=== PATIENT | female | born 1975 | race Two or more races ===

== ENCOUNTER 2024-11-04 08:00 | Day surgery (SDC) | payer OTHER ==
[2024-11-03 08:53] LABS: BASO % 0.6 % (0.1-1.2); EOS # 0.05 (0.04-0.54); EOS % 0.7 % (0.7-7.0); LYMPH # 3.03 (1.18-3.74); LYMPH % 45.0 % (19.3-53.1); MEAN PLATELET VOLUME 9.90 fl (9.4-12.4); MONO # 0.51 (0.24-0.82); MONO % 7.6 % (4.7-12.5); NEUT # 3.07 (1.56-6.13); NEUT % 45.5 % (34.0-71.1); RED CELL DISTRIBUTION WIDTH 12.3 % (11.6-14.4)
[2024-11-03 08:58] LABS: URINE APPEARANCE Clear; URINE BILIRRUBIN Negative (NEGATIVE); URINE BLOOD Negative; URINE COLOR Yellow; URINE GLUCOSE Negative (NEGATIVE); URINE KETONE Trace (NEGATIVE); URINE LEUKOCYTE Small; URINE NITRATE Negative; URINE PROTEIN Negative (NEGATIVE); URINE UROBILINOGEN 0.2 E.U./dl
[2024-11-03 08:59] LABS: URINE BACTERIA 592.7 uL (0.0-1933); URINE EPITHELIAL CELLS 18.2 uL (0.0-38.8); URINE RBC 7.4 uL (0.0-20.8); URINE WBC 18.2 uL (0.0-23.2)
[2024-11-03 09:10] LABS: COVID-19 AG NEGATIVE (NEGATIVE)
[2024-11-03 09:15] LABS: URINE CAST 0.14 uL (0.0-1.40)
[2024-11-03 09:17] LABS: INR 1.0
[2024-11-03 09:19] LABS: ALT/SGPT 16.0 U/L (12-78); AST/SGOT 10.0 U/L (15-37); BILIRUBIN TOTAL 0.6 mg/dL (0.3-1.2); BUN CREA RATIO 24.0 (7.0-25.0); CREATININE SERUM 0.66 mg/dL (0.55-1.02); GFR 94.8; GLOBULINA 3.3 G/DL (2.4-3.5); GLUCOSE FASTING 86.0 mg/dL (65-100); OSMOLALITY SERUM 284.0 MOSM/KG (275-295)
[2024-11-03 10:04] VITALS: BP 101/64
[~2024-11-04] VITALS: Ht 160 cm; Wt 61.7 kg
[2024-11-04] MEDS ORDERED: SUGAMMADEX SODIUM 200 MG/2 ML VIAL IV ONE (14:00)
[2024-11-04] MEDS ORDERED: POVIDONE-IODINE SCRUB 118 ML BOTT TOP ONE (14:00)
[2024-11-04] MEDS ORDERED: POVIDONE-IODINE 118 ML BOTT TOP ONE (14:00)
[2024-11-04] MEDS ORDERED: CLINDAMYCIN PHOSPHATE 150 MG/ML (900mg) IV ONE (14:00)
[2024-11-04] MEDS ORDERED: TRANEXAMIC ACID 100MG/1ML (1000MG) AMPUL IV ONE (14:00)
[2024-11-04] MEDS ORDERED: CEFAZOLIN SODIUM 1,000 MG VIAL IJ ONE (14:00)
[2024-11-04] MEDS ORDERED: GENTAMICIN SULFATE 40 MG/ML VIAL IR ONE (14:00)
[2024-11-04] MEDS ORDERED: BUPIVACAINE HCL 30 ML VIAL IJ ONE (14:00)
== END 2024-11-04 19:20 | disposition home or self-care (01) ==
LOC: CIR.AMB 08:00
PROVIDERS: ATTEND Surgery
DX: C50.412 Malignant neoplasm of upper-outer quadrant of left female breast (principal); C77.3 Secondary and unspecified malignant neoplasm of axilla and upper limb lymph nodes; D48.61 Neoplasm of uncertain behavior of right breast; N60.91 Unspecified benign mammary dysplasia of right breast; Z80.3 Family history of malignant neoplasm of breast

== ENCOUNTER 2024-12-30 06:00 | Day surgery (SDC) | payer OTHER ==
[2024-12-27 08:52] LABS: BASO % 0.8 % (0.1-1.2); EOS # 0.14 (0.04-0.54); EOS % 3.5 % (0.7-7.0); LYMPH # 1.23 (1.18-3.74); LYMPH % 30.8 % (19.3-53.1); MEAN PLATELET VOLUME 9.70 fl (9.4-12.4); MONO # 0.31 (0.24-0.82); MONO % 7.8 % (4.7-12.5); NEUT # 2.28 (1.56-6.13); NEUT % 57.1 % (34.0-71.1); RED CELL DISTRIBUTION WIDTH 12.2 % (11.6-14.4)
[2024-12-27 09:26] LABS: INR 0.97
[2024-12-27 09:32] LABS: BUN CREA RATIO 20.0 (7.0-25.0); CREATININE SERUM 0.45 mg/dL (0.55-1.02); GFR 147.48; GLUCOSE FASTING 105.0 mg/dL (65-100); OSMOLALITY SERUM 284.0 MOSM/KG (275-295)
[2024-12-27 09:37] LABS: URINE APPEARANCE Clear; URINE BILIRRUBIN Negative (NEGATIVE); URINE BLOOD Small; URINE COLOR Yellow; URINE GLUCOSE Negative (NEGATIVE); URINE KETONE Negative (NEGATIVE); URINE LEUKOCYTE Negative; URINE NITRATE Negative; URINE PROTEIN Negative (NEGATIVE); URINE UROBILINOGEN 0.2 E.U./dl
[2024-12-27 09:38] LABS: URINE BACTERIA 78.0 uL (0.0-1933); URINE EPITHELIAL CELLS 11.2 uL (0.0-38.8); URINE RBC 3.5 uL (0.0-20.8); URINE WBC 2.7 uL (0.0-23.2)
[2024-12-27 09:48] LABS: URINE CAST 0.00 uL (0.0-1.40)
[2024-12-27 10:49] VITALS: BP 107/71
[~2024-12-30] VITALS: Ht 160 cm; Wt 63.5 kg
[~2024-12-30 06:00] MED LIST: SYMBICORT 16010.2 GM; TAMOXIFEN CITRA10 MG
[2024-12-30] MEDS ORDERED: POVIDONE-IODINE SCRUB 118 ML BOTT TOP ONE (07:59)
[2024-12-30] MEDS ORDERED: POVIDONE-IODINE 118 ML BOTT TOP ONE (08:00)
[2024-12-30] MEDS ORDERED: GENTAMICIN SULFATE 40 MG/ML VIAL ONE (08:00)
[2024-12-30] MEDS ORDERED: CEFAZOLIN SODIUM 1,000 MG VIAL ONE (08:01)
[2024-12-30] MEDS ORDERED: CLINDAMYCIN PHOSPHATE 150 MG/ML (900mg) ONE (08:07)
[2024-12-30] MEDS ORDERED: ONDANSETRON HCL 2 MG/ML VIAL IV PRN (09:45)
[2024-12-30] MEDS ORDERED: TRANEXAMIC ACID 100MG/1ML (1000MG) AMPUL IV ONE (10:15)
== END 2024-12-30 12:45 | disposition home or self-care (01) ==
LOC: CIR.AMB 06:00
PROVIDERS: ATTEND Plastic Surgery
DX: N65.0 Deformity of reconstructed breast (principal); C50.412 Malignant neoplasm of upper-outer quadrant of left female breast; C77.3 Secondary and unspecified malignant neoplasm of axilla and upper limb lymph nodes; D48.61 Neoplasm of uncertain behavior of right breast; Z90.13 Acquired absence of bilateral breasts and nipples